=== PATIENT | female | born 1940 | race Caucasian/White ===

== ENCOUNTER 2024-03-24 06:58 | Emergency (ER) | payer MEDICARE, OTHER, SELFPAY ==
[2024-03-24 07:06] VITALS: BP 163/89
[2024-03-24 07:57] LABS: % Basophils 0.1 % (0-2); % Eosinophils 0.1 % (0-6); % Immature Granulocytes 0.4 % (0-0.5); % Monocytes 4.1 % (1.7-9.3); % Neutrophils 91.3 % (42.2-75.2); Absolute Lymphocytes 0.3 10^3/uL (1.2-3.4); Absolute Monocytes 0.3 10^3/uL (0.1-0.6); Absolute Neutrophils 6.4 10^3/uL (1.4-6.5); Hematocrit 41.9 % (37.0-47.0); Hemoglobin 14.5 g/dL (12.0-16.0); Mean Corp Hgb Conc. 34.6 g/dL (33.0-37.0); Mean Corpuscular Hgb 32.8 pg (27.0-31.0); Mean Corpuscular Volume 94.8 fL (81.0-99.0); Mean Platelet Volume 9.9 fL (7.4-10.4); Nucleated Red Blood Cells % 0 %; Platelet Count 163 10^3/uL (130-400); Red Blood Cell Count 4.42 10^6/uL (4.20-5.40); Red Cell Dist. Width 12.6 % (11.5-14.5)
[2024-03-24 08:05] VITALS: BP 150/80
[2024-03-24 08:06] VITALS: BMI 24.2
--- NOTE | 2024-03-24 08:09 | ED.GENMED ---
History of Present Illness
General
Chief Complaint: Abdominal Symptoms
Source: patient
Exam Limitations: none
Time Seen by Provider: 03/24/24 07:51
Nursing documentation reviewed up to this point in time: agreed with
History of Present Illness
History of Present Illness:
83-year-old female with past medical history of previous DVT PE presenting to the emergency department today with concerns of nausea vomiting diarrhea that started last night. Denies any sick contacts. Had some mild abdominal pain at the time but
denies any currently. Denies any high fevers or blood in her stool or vomit. Denies any chest pain or shortness of breath.
Review of Systems
Review of Systems
Allergies reviewed?: Yes
All Other Systems: ROS reviewed and negative except as documented in HPI and ROS
Phy Exam
Physical Exam
Physical Exam:
GENERAL: Alert , in no apparent distress
EYE: pupils equal and reactive
NECK: Supple, no significant adenopathy.
ENT: o/p clr, mmm.
CARDIAC: Regular rate and rhythm .
LUNGS: Clear breath sounds bilaterally, no acute respiratory distress, no wheezes/rales/rhonchi
ABDOMEN: Soft, without focal tenderness, no r/g, no cvat
NEUROLOGICAL: Alert and oriented, no focal neuro deficits
SKIN: Warm and dry, skin intact.
MUSCULOSKELETAL: No edema, well perfused.
PSYCH: Normal and appropriate interaction.
Course
Orders/Labs/Results
Orders:
Orders
03/24/24 07:39
Complete Blood Count/With Diff Urgent
Comprehensive Metabolic Panel Urgent
Lipase Urgent
03/24/24 08:01
Urinalysis Reflex To Culture Urgent
0.9% Sodium Chloride 1000 ml [Nss] 1,000 ml IV BOLUS
Ondansetron Injectable [Zofran] 4 mg IV NOW STA
Abnormal Lab Results
03/24/24
07:39
MCH 32.8 H pg
(27.0-31.0)
Absolute Lymphs (auto) 0.3 L 10^3/uL
(1.2-3.4)
Neutrophils % 91.3 H %
(42.2-75.2)
Lymphocytes % 4.0 L %
(20.5-51.1)
BUN 24 H mg/dl
(7-17)
Glucose 153 H mg/dl
(70-99)
AST 50 H U/L
(14-36)
ALT 49 H U/L
(0-35)
03/24/24 07:39
03/24/24 07:39
Vital Signs
Initial and Last Documented VS:
Initial Vital Signs
Temp Pulse Resp BP Pulse Ox
99.9 F 84 20 163/89 97
03/24/24 07:06 03/24/24 07:06 03/24/24 07:06 03/24/24 07:06 03/24/24 07:06
Last Documented Vital Signs
Temp Pulse Resp BP Pulse Ox
98.6 F 75 26 150/80 96
03/24/24 08:05 03/24/24 08:05 03/24/24 08:05 03/24/24 08:05 03/24/24 08:05
MDM/Problems Addressed
MDM/Problems Addressed:
Patient is a very well-appearing 83-year-old female presenting to the emergency department today with concerns of nausea vomiting and diarrhea starting last night. Denies any current abdominal pain no reproducible pain on palpation initial blood
pressure elevated as well as mildly elevated temperature otherwise vital signs are normal. Patient was given Zofran as well as fluids. Patient was reassessed roughly 1 hour after treatment claims that symptoms were significantly improved. Patient
was able to tolerate by mouth no emergent findings on labs other than a slight BUN to creatinine ratio elevation but was given a liter of fluid prior to discharge. Patient at this point stable for discharge return precautions given.
*Critical Care Note
Total Time (30-74mins, 75-104mins- exclusive of procedures): Not Applicable
ED Attending Note
-
Portions of this chart may have been created with voice recognition software.� Occasional wrong word or��sound alike� substitutions may have occurred due to the inherent limitations of voice recognition software.
Discharge Plan
Departure
Patient Disposition: Home (Routine Discharge)
Date of Disposition: 03/24/24
Time of Disposition: :59
Patient with high blood pressure during this ER visit?: No
Condition: Good
Covid-19: Not Applicable
Discharge Problem:
Vomiting and diarrhea
Instructions: Diarrhea in teens and adults, Nausea and Vomiting, Adult (DC)
Prescriptions:
New
ondansetron 4 mg tablet,disintegrating
4 mg PO Q8H PRN (Reason: nausea and vomiting) Qty: 7 0RF
No Action
magnesium citrate Solution
150 ml PO ONCE Qty: 296 0RF
polyethylene glycol 3350 [Miralax] 17 gram/dose powder
4 g PO DAILY PRN (Reason: Constipation) Qty: 119 0RF
bisacodyl 10 mg/30 mL enema
5 mg PA DAILY PRN (Reason: Constipation) Qty: 37 0RF
Referrals:
Avis Carrington MD [Family Provider] -
Activity Restrictions/Additional Instructions:
You came to the emergency department today with concerns of nausea vomiting diarrhea. Here you had a reassuring assessment you did show some evidence of mild early dehydration but you are given a liter of fluid to help with this. Please take the
Zofran 1-2 tabs every 8 hours as needed. Return to the emergency department immediately for any worsening, new or concerning symptoms.
Interventions
Interventions:
*Risk Screen - Suicide Last Done: 03/24/24 07:06
*General Assessment Last Done: 03/24/24 07:06
*Neglect/Abuse Screening Last Done: 03/24/24 07:06
*ED COVID-19 Vaccine History Last Done: 03/24/24 08:02
DV-Mbtlus-Wizkanjjrr Assessment Last Done: 03/24/24 08:02
Discharge Date and Time
Print Language: TELUGU
[2024-03-24] MEDS: ZOFRAN 4 MG IV (08:16)
[2024-03-24] MEDS: NSS 1000 IV (08:17)
[2024-03-24 08:28] LABS: ALT (SGPT) 49 U/L (0-35); AST (SGOT) 50 U/L (14-36); Albumin 4.5 g/dl (3.5-5.0); Alkaline Phosphatase 84 U/L (38-126); Blood Urea Nitrogen 24 mg/dl (7-17); Calcium 9.4 mg/dl (8.4-10.2); Carbon Dioxide 27 mmol/L (22-30); Chloride 103 mmol/L (98-107); Estimated Creatinine Clearance 51 ml/min; Glucose 153 mg/dl (70-99); Lipase 61 U/L (23-300); Sodium 138 mmol/L (135-145); Total Bilirubin 1.2 mg/dl (0.2-1.3); Total Protein 6.6 g/dl (6.3-8.2); eGFR > 60.00
== END 2024-03-24 10:28 | disposition home or self-care (01) ==
LOC: EMR 06:58
PROVIDERS: EMERGENCY PHYSICIAN Emergency Medicine; FAMILY PHYSICIAN Family Medicine
DX: R19.7 Diarrhea, unspecified (principal); R11.2 Nausea with vomiting, unspecified; R10.9 Unspecified abdominal pain; E78.5 Hyperlipidemia, unspecified; G62.9 Polyneuropathy, unspecified; Z86.718 Personal history of other venous thrombosis and embolism; Z86.711 Personal history of pulmonary embolism
CPT/HCPCS: 99284; 96374; 96361; 80053; 83690; 85025

== ENCOUNTER 2024-03-24 16:43 | Emergency (ER) | payer MEDICARE, OTHER, SELFPAY ==
[2024-03-24] VITALS (7 sets, daily range): BP systolic 140–155; BP diastolic 72–89; BMI 23.5
--- NOTE | 2024-03-24 17:36 | ED.GENMED ---
History of Present Illness
General
Chief Complaint: Abdominal Symptoms
Source: patient
Exam Limitations: none
Time Seen by Provider: 03/24/24 17:35
Nursing documentation reviewed up to this point in time: agreed with
History of Present Illness
History of Present Illness:
Patient to ED with complaint of continued vomiting and diarrhea. Symptoms started last PM. She was seen in ED earlier today and improved iwth IVF, zofran. Labs unremarkable. SHe was discharged home but returns stating vomiting continues despite
zofran, still with diarrhea. Denies fever/chills. Brought to ED by spouse for eval.
Review of Systems
Review of Systems
Allergies reviewed?: Yes
All Other Systems: ROS reviewed and negative except as documented in HPI and ROS
Constitutional: Reports no symptoms
EENT: Reports no symptoms
Respiratory: Reports no symptoms
Cardiac: Reports no symptoms
ABD/GI: Reports nausea, vomiting and diarrhea
: Reports no symptoms
Musculoskeletal: Reports no symptoms
Skin: Reports no symptoms
Neurological: Reports no symptoms
Psychiatric: Reports no symptoms
Phy Exam
General Physical Exam
General Presentation: well appearing and no apparent distress
General age: appears stated age
General Skin: warm and dry
General Habitus: normal
General Mental: alert
Pulmonary Exam
Pulmonary Exam: lungs clear, no respiratory distress and chest non tender
Gastrointestinal Exam
Gastrointestinal Exam: normal bowel sounds, non tender, soft, no organomegaly, non distended and no cva tenderness
Musculoskeletal Exam
Musculoskeletal Exam: full ROM and neuro vasc intact
Skin Exam
Skin Exam: normal color, warm/dry and no rash
Psychiatric Exam
Psychiatric Exam: normal mood/affect
Course
Orders/Labs/Results
Orders:
Orders
03/24/24 17:35
CT Abd/pel W Iv And Oral Contr Urgent
Comment:
Reason For Exam: vomiting, diarrhea
0.9% Sodium Chloride 1000 ml [Nss] 1,000 ml IV BOLUS
Iohexol [Omnipaque] See Protocol PO NOW STA
Ondansetron Injectable [Zofran] 4 mg IV NOW STA
03/24/24 18:39
Urinalysis Reflex To Culture Urgent
Date Specimen was Collected: 03/24/24
Time Specimen was Collected: 18:38
Urine Microscopic Reflex Cult Urgent
03/24/24 21:04
STOOL [C difficile Antigen & Toxins] Urgent
BETHANY Source: Feces/Stool
Specimen Description:
Date Specimen was Collected: 03/24/24
Time Specimen was Collected: 21:02
Stool Culture Urgent
BETHANY Source: Feces/Stool
Specimen Description:
Date Specimen was Collected: 03/24/24
Time Specimen was Collected: 21:02
03/24/24 22:52
Diphenoxylate / Atropine [Lomotil] 1 tablet PO NOW STA
Abnormal Lab Results
03/24/24
18:39
Urine Ketones 3+ A
(Negative)
Urine Bilirubin 1+ A
(Negative)
Leukocyte Esterase Rfl Trace A
(Negative)
Urine RBC 3-6 A /HPF
(0-2)
Vital Signs
Initial and Last Documented VS:
Initial Vital Signs
Temp Pulse Resp BP Pulse Ox
99.3 F 87 18 149/88 96
03/24/24 16:45 03/24/24 16:45 03/24/24 16:45 03/24/24 16:45 03/24/24 16:45
Last Documented Vital Signs
Temp Pulse Resp BP Pulse Ox
99.3 F 87 18 146/82 95
03/24/24 16:45 03/24/24 16:45 03/24/24 16:45 03/24/24 22:44 03/24/24 22:45
*Radiology
Radiology exam reviewed: radiology read reviewed
*Pulse Oximetry
Patient hypoxic: no
*Critical Care Note
Total Time (30-74mins, 75-104mins- exclusive of procedures): Not Applicable
Update Note
Update Note:
Labs, CT results reviewed with patient. No concerning findings. WIll discharge home on zofran, clear liquids. Given instructions on s/s to return to ED and she is agreeable to plan.
ED Attending Note
-
Portions of this chart may have been created with voice recognition software.� Occasional wrong word or��sound alike� substitutions may have occurred due to the inherent limitations of voice recognition software.
Discharge Plan
Departure
Patient Disposition: Home (Routine Discharge)
Date of Disposition: 03/24/24
Time of Disposition: 22:22
Patient with high blood pressure during this ER visit?: No
Condition: Good
Covid-19: Not Applicable
Discharge Problem:
Vomiting and diarrhea
Instructions: Diarrhea in teens and adults, Nausea and Vomiting, Adult (DC)
Prescriptions:
No Action
magnesium citrate Solution
150 ml PO ONCE Qty: 296 0RF
polyethylene glycol 3350 [Miralax] 17 gram/dose powder
4 g PO DAILY PRN (Reason: Constipation) Qty: 119 0RF
bisacodyl 10 mg/30 mL enema
5 mg SC DAILY PRN (Reason: Constipation) Qty: 37 0RF
ondansetron 4 mg tablet,disintegrating
4 mg PO Q8H PRN (Reason: nausea and vomiting) Qty: 7 0RF
Referrals:
Avis Carrington MD [Family Provider] - Follow up in 2-3 days
Interventions
Interventions:
*Risk Screen - Suicide Last Done: 03/24/24 17:13
*General Assessment Last Done: 03/24/24 17:13
*Neglect/Abuse Screening Last Done: 03/24/24 17:13
ED- Fall Risk Assessment Last Done: 03/24/24 18:45
*ED COVID-19 Vaccine History Last Done: 03/24/24 17:13
*Nursing Disposition Last Done: 03/24/24 23:10
FF-Iobadf-Xyxcaoleix Assessment Last Done: 03/24/24 17:13
Discharge Date and Time
Discharge Date/Time: 03/24/24 23:10
Print Language: TELUGU
[2024-03-24] MEDS: NSS 1000 IV (18:16)
[2024-03-24] MEDS: OMNIPAQUE 50 ML PO (18:17)
[2024-03-24] MEDS: ZOFRAN 4 MG IV (18:17)
[2024-03-24 19:10] LABS: Urine Albumin Trace (Neg - Trace); Urine Bilirubin 1+ (Negative); Urine Character Clear (Clear); Urine Color Yellow; Urine Glucose Negative (Negative); Urine Ketone 3+ (Negative); Urine Leukocyte Trace (Negative); Urine Nitrite Negative (Negative); Urine Occult Blood Negative (Negative); Urine Specific Gravity 1.015 (<1.030); Urine Urobilinogen Negative (Neg - 1+)
[2024-03-24 19:24] LABS: Urine White Cell 0-2 /HPF (0-5)
[2024-03-24] MEDS: LOMOTIL 1 TABLET PO (23:01)
== END 2024-03-24 23:10 | disposition home or self-care (01) ==
LOC: EMR 16:43
PROVIDERS: Nurse Practitioner; EMERGENCY PHYSICIAN Emergency Medicine; FAMILY PHYSICIAN Family Medicine
DX: R11.2 Nausea with vomiting, unspecified (principal); R19.7 Diarrhea, unspecified; R10.9 Unspecified abdominal pain; E78.5 Hyperlipidemia, unspecified; G62.9 Polyneuropathy, unspecified; Z86.711 Personal history of pulmonary embolism; Z86.718 Personal history of other venous thrombosis and embolism
CPT/HCPCS: 99285; 96361; 96374; 74177; 81003; 81015; 87045; 87046; 87324; 87427; 87449; Q9967

== ENCOUNTER → 2024-04-07 11:28 | Outpatient (REF) | payer MEDICARE, OTHER, SELFPAY | LOC: WDC 11:28 | PROVIDERS: ATTENDING PHYSICIAN Family Medicine | DX: Z12.31 Encounter for screening mammogram for malignant neoplasm of breast (principal) | CPT/HCPCS: 77063; 77067 ==